=== PATIENT | male | born 1985 | race Caucasian/White ===

== ENCOUNTER 2022-04-03 09:09 | Emergency (ER) | payer MEDICAID ==
[~2022-04-03] VITALS: Ht 167.6 cm; Wt 94.1 kg
[2022-04-03 09:22] VITALS: BP 132/84
[2022-04-03] MEDS ORDERED: TRAM50TA4 PO (11:45)
[2022-04-03] MEDS ORDERED: PENI500T2 PO (11:45)
== END 2022-04-03 11:57 | disposition home or self-care (01) ==
LOC: EMS 09:10
DX: K04.7 Periapical abscess without sinus (principal); K02.9 Dental caries, unspecified; F31.9 Bipolar disorder, unspecified
CPT/HCPCS: 99283; Z7502